=== PATIENT | female | born 1955 | race Caucasian/White ===

== ENCOUNTER → 2020-07-15 | Outpatient (CLI) | payer OTHER ==
--- NOTE | 2020-07-20 09:41 | MM ---
Reason for exam: screening (asymptomatic). Last mammogram was performed 1 year and 4 months ago. History: Patient is postmenopausal, history of other cancer, and is nulliparous. Family history of breast cancer in maternal grandmother, breast cancer in maternal aunt, and breast cancer in 2 maternal cousins. Benign excisional biopsy of the left breast, 1997. Physical Findings: A clinical breast exam by your physician is recommended on an annual basis and results should be correlated with mammographic findings. MG 3D Screening Mammo W/Cad Bilateral CC and MLO view(s) were taken. Prior study comparison: March 31, 2019, mammogram, performed at [place]. September 26, 2017, mammogram, performed at [place]. There are scattered fibroglandular densities. There is no discrete abnormality. No significant changes when compared with prior studies. ASSESSMENT: Negative, BI-RAD 1 RECOMMENDATION: Routine screening mammogram of both breasts in 1 year.
== END | disposition home or self-care (01) ==
LOC: RADMAMWWP 08:26
PROVIDERS: ATTEND Family Medicine
DX: Z12.31 Encounter for screening mammogram for malignant neoplasm of breast (principal); Z78.0 Asymptomatic menopausal state; Z80.3 Family history of malignant neoplasm of breast
CPT/HCPCS: 77063; 77067

== ENCOUNTER → 2020-10-19 | Outpatient (CLI) | payer OTHER ==
--- NOTE | 2020-10-19 13:05 | US ---
EXAMINATION TYPE: US pelvis complete transvag DATE OF EXAM: 10/19/2020 COMPARISON: NONE CLINICAL HISTORY: R10.2 PELVIC PAIN. history of oophorectomy, patient unsure which one. TECHNIQUE: Transvaginal (TV) and Transabdominal (TA) . Date of LMP: postmenopausal, no HRT. EXAM MEASUREMENTS: Uterus: 4.4 x 1.9 x 3.2 cm Endometrial Stripe: 0.2 cm Right Ovary: 1.8 x 1.5 x 1.7 cm Left Ovary: not seen, assumed surgically absent 1. Uterus: Anteverted wnl 2. Endometrium: wnl 3. Right Ovary: wnl 4. Left Ovary: Surgically absent 5. Bilateral Adnexa: wnl 6. Posterior cul-de-sac: no free fluid IMPRESSION: 1. No acute process.
== END | disposition home or self-care (01) ==
LOC: RADUSWWP 12:35
PROVIDERS: ATTEND Obstetrics & Gynecology
DX: R10.2 Pelvic and perineal pain (principal); Z90.721 Acquired absence of ovaries, unilateral
CPT/HCPCS: 76830; 76856

== ENCOUNTER → 2021-05-19 | Outpatient (CLI) | payer OTHER ==
--- NOTE | 2021-05-20 06:51 | MR ---
EXAMINATION TYPE: MR knee RT wo con DATE OF EXAM: 05/19/2021 COMPARISON: Outside right knee x-ray May 11, 2019 HISTORY: Right knee pain TECHNIQUE: Multiplanar, multisequence imaging of the right knee is performed without IV contrast. FINDINGS: MEDIAL MENISCUS: Oblique and globular signal posterior horn extends to inferior articular surface tow ards the central body where there is fraying of the margins. LATERAL MENISCUS: Oblique increased signal anterior horn extends to superior articular surface sagitt al image 26. There is vertical increased signal posterior horn sagittal image 28 extending to articul ar surface. CRUCIATE LIGAMENTS: The anterior and posterior cruciate ligaments are intact and unremarkable. COLLATERAL LIGAMENTS: The medial collateral ligament and lateral collateral ligament complex are inta ct and unremarkable. EXTENSOR MECHANISM: Visualized quadriceps and patellar tendons are intact. EFFUSION: There is Small to moderate size suprapatellar joint effusion. POPLITEAL CYST: No popliteal/berrios cyst. TRICOMPARTMENT SPACES: Mild to moderate narrowing and spurring medial tibial femoral compartment. Mil d narrowing and spurring lateral tibiofemoral and patellofemoral compartments. CARTILAGE: Tricompartment articular cartilage fairly well preserved BONE MARROW SIGNAL: No focal abnormal marrow signal is appreciated. OTHER: No additional significant abnormality is appreciated. IMPRESSION: 1. Full-thickness tear posterior horn of the medial meniscus extending toward central body. 2. Full-thickness tearing involving anterior and posterior horns of the lateral meniscus. 3. Small to moderate-sized suprapatellar joint effusion. 4. Mild to moderate tricompartment degenerative changes greatest medial tibial femoral compartment as detailed above.
== END | disposition home or self-care (01) ==
LOC: RADMRIMAIN 13:01
PROVIDERS: ATTEND Orthopaedic Surgery
DX: M25.461 Effusion, right knee (principal); M23.321 Other meniscus derangements, posterior horn of medial meniscus, right knee; M23.341 Other meniscus derangements, anterior horn of lateral meniscus, right knee; M23.351 Other meniscus derangements, posterior horn of lateral meniscus, right knee; M17.11 Unilateral primary osteoarthritis, right knee

== ENCOUNTER → 2021-06-15 | Outpatient (CLI) | payer OTHER ==
[2021-06-15 18:56] LABS: Basophils # (A) 0.07 X 10*3/uL (0.00-0.10); Basophils % (A) 0.9 %; Eosinophils # (A) 0.12 X 10*3/uL (0.04-0.35); Eosinophils % (A) 1.6 %; HCT 44.3 % (37.2-46.3); HGB 13.7 g/dL (12.0-15.0); Immature Grans, Automated 0.3 %; Lymphocytes # (A) 2.04 X 10*3/uL (0.90-5.00); Lymphocytes % (A) 27.6 %; MCH 28.7 pg (27.0-32.0); MCHC 30.9 g/dL (32.0-37.0); MCV 92.9 fL (80.0-97.0); Monocytes # (A) 0.54 X 10*3/uL (0.20-1.00); Monocytes % (A) 7.3 %; NRBC Per 100 WBC 0 /100 WBCS (0.0-0.0); Neutrophils # (A) 4.59 X 10*3/uL (1.80-7.70); Neutrophils % (A) 62.3 %; Platelet Count 339 X 10*3/uL (140-440); RBC 4.77 X 10*6/uL (4.10-5.20); RDW 16.2 % (11.5-14.5); WBC 7.38 X 10*3/uL (4.50-10.00)
[2021-06-15 18:58] LABS: Anion Gap 14.4 mmol/L (10.00-18.00); Potassium 4.2 mmol/L (3.5-5.5)
== END | disposition home or self-care (01) ==
LOC: LABPAT 10:44
PROVIDERS: ATTEND Orthopaedic Surgery
DX: Z01.812 Encounter for preprocedural laboratory examination (principal); M23.91 Unspecified internal derangement of right knee
CPT/HCPCS: 80051; 85025

== ENCOUNTER 2021-06-30 09:03 | Day surgery (SDC) | payer OTHER ==
--- NOTE | 2021-06-29 14:54 | HP ---
HISTORY AND PHYSICAL DATE OF SURGERY: 06/30/2021 Tavia Slaughter is a 66-year-old patient seen with progressive right knee pain. We discussed options. She elected to proceed with right knee arthroscopy. Consent was obtained. PAST MEDICAL HISTORY: Scleroderma, GERD. PAST SURGICAL HISTORY: Breast biopsy, finger amputation, foot mass excision. DAILY MEDICATIONS: Ibuprofen, Lexapro, Nexium. ALLERGIES: NONE. SOCIAL HISTORY: She smokes half pack of cigarettes daily. PHYSICAL EVALUATION OF THE RIGHT KNEE: Her range of motion is negative 2 to 115. Mild effusion. Tenderness, lateral joint line. Tenderness, medial joint line. Positive lateral Tobias's. Ligaments stable. Hip rotation without pain. Distal neurovascular exam intact. Radiographs of the right knee revealed moderate tricompartmental osteoarthritis. MRI right knee revealed medial meniscal tear, lateral meniscal tear and effusion. IMPRESSION: 1. Internal derangement of right knee with medial and lateral meniscal tears. 2. Right knee osteoarthritis. 3. Gastroesophageal reflux disease. PLAN: Right knee arthroscopy with partial medial/lateral meniscectomy and debridement. MMODL / IJN: [id number] /
[~2021-06-30 09:03] MED LIST: DEXAMETHASONE SOD PHOSPHATE 4 MG/ML 1 ML VIAL IV ONE; HYDROmorphone 0.5 MG/0.5 ML SYRINGE IVP PRN; LACTATED RINGERS 1,000 ML IV SCH; LIDOCAINE 1% (10MG/ML) FOR IV START INTRADERMA PRN; MIDAZOLAM 2 MG/2 ML VIAL IV PRN; ONDANSETRON 4 MG/2 ML VIAL IVP ONE
[2021-06-30] MEDS ORDERED: fentaNYL (PF) 50 MCG/ML 2 ML AMP ONE (12:11)
[2021-06-30] MEDS ORDERED: MIDAZOLAM 2 MG/2 ML VIAL ONE (12:11)
[2021-06-30] MEDS ORDERED: PROPOFOL 10 MG/ML 20 ML VIAL IV ONE (12:11)
[2021-06-30] MEDS ORDERED: LIDOCAINE 2% INJ 20 MG/ML (2 ML VIAL) ONE (12:11)
[2021-06-30] MEDS ORDERED: SUCCINYLCHOLINE CHLORIDE 100 MG/5 ML SYR IV ONE (12:11)
[2021-06-30] MEDS ORDERED: BUPIVACAINE (PF) 0.25% 30 ML VIAL SQ ONE ×2 (12:14→12:48)
--- NOTE | 2021-06-30 13:03 | P.OP ---
Date of Procedure: 06/30/21 Preoperative Diagnosis: Internal derangement right knee Postoperative Diagnosis: 1. Tear medial meniscus right knee 2. Tear lateral meniscus right knee 3. Grade 4 chondromalacia medial femoral condyle right knee 4. Reactive synovitis medial, lateral and suprapatellar compartments right knee Procedure(s) Performed: 1. Arthroscopic partial medial and lateral meniscectomy right knee 2. Arthroscopic microfracture medial femoral condyle right knee 3. Arthroscopic partial synovectomy medial, lateral and suprapatellar compartments right knee Anesthesia: BROWNA, local Surgeon: Ludin Thakkar Estimated Blood Loss (ml): 7 Pathology: none sent Condition: stable Disposition: PACU Indications for Procedure: 66-year-old patient seen with progressive right knee pain. After treatment options were discussed, she elected to proceed with arthroscopy. Operative Findings: See description of procedure Description of Procedure: Patient was taken to the operative suite. Patient underwent a general anesthetic by the department of anesthesia. Patient was given preoperative antibiotics. The right lower extremity was placed in a well-padded arthroscopic leg silva. The right leg was prepped and draped in the normal sterile orthopedic fashion. A lateral parapatellar and suprapatellar incision was made. Trochars were inserted. Arthroscopy was initiated. Suprapatellar pouch revealed diffuse thick reactive synovitis. The patellofemoral joint appeared articulate congruently. There was grade 1/2 chondromalacia of the patella with no Gibson and osteochondral tears present. The scope was guided into the medial gutter. No loose bodies or plica were identified. The scope was then guided into the medial compartment. A medial parapatellar incision was made. Trocar inserted followed by probe. There was a radial tear involving the posterior horn of the medial meniscus. There was an area of grade 4 chondromalacia with exposed bone involving the medial femoral condyle. There was thick reactive synovitis anteriorly. I performed a partial medial meniscectomy getting down to stable meniscal tissue. I performed a partial synovectomy decompressing the thick reactive synovitis. I performed a microfracture to the medial femoral condyle penetrating the bone with resultant bleeding at the microfracture site. The residual meniscus was probed and found to be stable. There was good decompression of synovitis. The residual osteochondral surface of the medial femoral condyle appeared stable. Scope and probe were then guided into the intercondylar notch. Cruciates were identified, probed and found to be stable. The scope and probe were then guided into lateral compartment. There was a discoid lateral meniscus with a central tear. There were grade 3 chondromalacia changes of the lateral femoral condyle without osteochondral tears. There was some thick reactive synovitis anteriorly. I performed a partial lateral meniscectomy restoring the normal architecture to the lateral meniscus. I introduced a motorized shaver and debrided out this piecemeal fragments. I now performed a partial synovectomy decompressing the thick reactive some-itis anteriorly. The residual meniscus was stable. There was good decompression of synovitis. The scope was in guided back into the suprapatellar compartment. I introduced a motorized shaver into the suprapatellar compartment. I debrided out some piecemeal fragments of meniscus I encountered. I performed a partial synovectomy. The shaver was now removed. There was good decompression of synovitis. I now took one more look around the entire knee, no residual debris. Instruments were now removed from the joint. The joint was infiltrated with .25% Marcaine. Steri-Strips were applied to the portal sites. Sterile dressings were applied. The patient was placed into a IGNACIO hose. No tourniquet was utilized. The patient was awakened, transferred to a bed and taken to recovery stable satisfactory condition.
[2021-06-30 13:10] VITALS: TEMP 97.4
[2021-06-30 13:26] VITALS: RESP 16
[2021-06-30 14:02] VITALS: BP 148/69; PULSE 70
== END 2021-06-30 14:12 | disposition home or self-care (01) ==
LOC: OR 09:03
PROVIDERS: ATTEND Orthopaedic Surgery
DX: S83.241A Other tear of medial meniscus, current injury, right knee, initial encounter (principal); S83.281A Other tear of lateral meniscus, current injury, right knee, initial encounter; M94.261 Chondromalacia, right knee; F17.210 Nicotine dependence, cigarettes, uncomplicated; K21.9 Gastro-esophageal reflux disease without esophagitis; M65.861 Other synovitis and tenosynovitis, right lower leg; F32.A Depression, unspecified; Z79.899 Other long term (current) drug therapy; K22.70 Barrett's esophagus without dysplasia
CPT/HCPCS: 29880; 29879; J2250; J1100; J0690; J2405; J3010; J0330; J2704; J2001

== ENCOUNTER → 2021-07-19 | Outpatient (CLI) | payer OTHER ==
--- NOTE | 2021-07-21 14:52 | MM ---
Reason for Exam: Screening (asymptomatic). Last screening mammogram was performed 12 month(s) ago. Patient History: Menarche at age 16. Patient has no children. Hysterectomy at age 53. Postmenopausal. Other cancer. 1997, Benign Excisional Biopsy on the left side. Maternal grandmother had breast cancer. Maternal cousin had breast cancer. Maternal cousin had breast cancer. Maternal aunt had breast cancer. Risk Values: Juanita 5 year model risk: 1.9%. NCI Lifetime model risk: 7.7%. Film Views: Bilateral CC views were taken. Bilateral MLO views were taken. Prior Study Comparison: 09/26/2017 Screening Mammogram, [place]. 03/31/2019 Screening Mammogram, [place]. 07/15/2020 Bilateral Screening Mammogram, [facility]. Tissue Density: The breast tissue is almost entirely fat. Findings: Analyzed By CAD. There is no suspicious group of microcalcifications or new suspicious mass in either breast. Overall Assessment: Benign, BI-RAD 2 Management: Screening Mammogram of both breasts in 1 year. A clinical breast exam by your physician is recommended on an annual basis and results should be correlated with mammographic findings. Electronically signed and approved by: Matt Peters M.D. Radiologis
== END | disposition home or self-care (01) ==
LOC: RADMAMWWP 10:49
PROVIDERS: ATTEND Family Medicine
DX: Z12.31 Encounter for screening mammogram for malignant neoplasm of breast (principal); Z80.3 Family history of malignant neoplasm of breast; Z78.0 Asymptomatic menopausal state
CPT/HCPCS: 77067

== ENCOUNTER → 2022-07-20 | Outpatient (CLI) | payer MEDICARE ==
--- NOTE | 2022-07-21 09:04 | MM ---
Reason for Exam: Screening (asymptomatic). Last screening mammogram was performed 12 month(s) ago. Patient History: Menarche at age 16. Patient has no children. Hysterectomy at age 53. Postmenopausal. Other cancer. 1997, Benign Excisional Biopsy on the left side. Maternal grandmother had breast cancer. Maternal cousin had breast cancer. Maternal cousin had breast cancer. Maternal aunt had breast cancer. Risk Values: Juanita 5 year model risk: 2.0%. NCI Lifetime model risk: 7.5%. Prior Study Comparison: 03/31/2019 Screening Mammogram, [place]. 07/15/2020 Bilateral Screening Mammogram, [facility]. 07/19/2021 Bilateral MG screening mammo w CAD, [facility]. Tissue Density: There are scattered fibroglandular densities. Findings: Analyzed By CAD. There are a few scattered benign-appearing round calcifications throughout the bilateral breasts redemonstrated. There is no suspicious group of microcalcifications or new suspicious mass in either breast. Overall Assessment: Benign, BI-RAD 2 Management: Screening Mammogram of both breasts in 1 year. . Patient should continue monthly self-breast exams. A clinical breast exam by your physician is recommended on an annual basis. This exam should not preclude additional follow-up of suspicious palpable abnormalities. Note on Juanita scores and lifetime risk: 1. A Juanita score greater than 3% is considered moderate risk. If this is the case, consider specialist referral to assess eligibility for a risk reducing agent. 2. If overall lifetime risk for the development of breast cancer is 20% or higher, the patient may qualify for future screening with alternating mammogram and breast MRI. Electronically signed and approved by: Spencer Diallo M.D.
== END | disposition home or self-care (01) ==
LOC: RADMAMWWP 09:02
PROVIDERS: ATTEND Family Medicine
DX: Z12.31 Encounter for screening mammogram for malignant neoplasm of breast (principal); Z78.0 Asymptomatic menopausal state; Z80.3 Family history of malignant neoplasm of breast
CPT/HCPCS: 77063; 77067

== ENCOUNTER 2022-11-08 11:01 | Emergency (ER) | payer MEDICARE, OTHER ==
--- NOTE | 2022-11-08 11:36 | ED ---
General Adult HPI - General Stated complaint: Fall/Dizzy Time Seen by Provider: 11/08/22 11:35 Source: patient, RN notes reviewed Mode of arrival: ambulatory Limitations: no limitations - History of Present Illness Initial comments: 67-year-old female presents emergency Department chief complaint of a head injury. Patient states she took back in a chair striking her head on Sunday night. She states ever since she struck her head she's felt dizzy. She initially had a headache that has improved. There is no focal weakness denies any blood thinners she does complain of mild neck soreness. Patient denies any chest pain or shortness of breath. - Related Data Home Medications Medication Instructions Recorded Confirmed Escitalopram [Lexapro] 10 mg PO DAILY 06/28/21 06/30/21 Esomeprazole Magnesium [NexIUM] 20 mg PO DAILY 06/28/21 06/30/21 NIFEdipine [Procardia] 10 mg PO DAILY 06/28/21 06/30/21 Sildenafil [Revatio] 2 tab PO DAILY 06/28/21 06/30/21 Previous Rx's Medication Instructions Recorded HYDROcodone/APAP 5-325MG [[place] 1 tab PO Q6HR PRN 7 Days #28 tab 06/30/21 5-325] Meclizine [Antivert] 25 mg PO TID PRN #15 tab 11/08/22 Allergies Allergy/AdvReac Type Severity Reaction Status Date / Time COVID-19 (SARS-CoV-2) Allergy Anaphylaxis Verified 11/08/22 11:38 vaccine, catrachito Sulfa (Sulfonamide AdvReac Nausea & Verified 11/08/22 11:38 Antibiotics) Vomiting Review of Systems ROS Statement: Those systems with pertinent positive or pertinent negative responses have been documented in the HPI. ROS Other: All systems not noted in ROS Statement are negative. General Exam - General Exam Comments Initial Comments: Visual Physical Exam Vital signs reviewed General: Well-appearing, nontoxic, no acute distress. Head: Normocephalic, atraumatic Eyes: PERRLA, EOMI ENT: Airway patent Chest: Nonlabored breathing Skin: No visual rash, normal skin tone Neuro: Alert and oriented 3 Musculoskeletal: No gross abnormalities Limitations: no limitations General appearance: alert, in no apparent distress Head exam: Present: atraumatic, normocephalic, normal inspection Eye exam: Present: normal appearance, PERRL, EOMI. Absent: scleral icterus, conjunctival injection, periorbital swelling ENT exam: Present: normal exam, mucous membranes moist Neck exam: Present: normal inspection, full ROM. Absent: tenderness, meningismus, lymphadenopathy Respiratory exam: Present: normal lung sounds bilaterally. Absent: respiratory distress, wheezes, rales, rhonchi, stridor Cardiovascular Exam: Present: regular rate, normal rhythm, normal heart sounds. Absent: systolic murmur, diastolic murmur, rubs, gallop, clicks Neurological exam: Present: alert, oriented X3, CN II-XII intact, reflexes normal. Absent: motor sensory deficit Skin exam: Present: warm, dry, intact, normal color. Absent: rash Course Vital Signs 11/08/22 11/08/22 11:33 14:30 Temperature 98.2 F 97.8 F Pulse Rate 63 70 Respiratory 18 18 Rate Blood Pressure 131/81 159/76 O2 Sat by Pulse 98 Oximetry Medical Decision Making - Medical Decision Making I performed a quick note portion of this Chart signed Jesus Ellison PA-C Was pt. sent in by a medical professional or institution (LIDIA Joy, TECHNICAL SERVICES COORDINATOR, urgent care, hospital, or [facility]...) When possible be specific @ -No Did you speak to anyone other than the patient for history (EMS, parent, family, police, friend...)? What history was obtained from this source @ -No Did you review nursing and triage notes (agree or disagree)? Why? @ -I reviewed and agree with nursing and triage notes Were old charts reviewed (outside hosp., previous admission, EMS record, old EKG, old radiological studies, urgent care reports/EKG's, [facility] records)? Report findings @ -No old charts were reviewed Differential Diagnosis (chest pain, altered mental status, abdominal pain women, abdominal pain men, vaginal bleeding, weakness, fever, dyspnea, syncope, headache, dizziness, GI bleed, back pain, seizure, CVA, palpatations, mental health, musculoskeletal)? @ -Intracranial hemorrhage, concussion, head injury EKG interpreted by me (3pts min.). @ -None X-rays interpreted by me (1pt min.). @ -None done CT interpreted by me (1pt min.). @ -CT brain, C-spine shows no acute intracranial processfracture no malalignment U/S interpreted by me (1pt. min.). @ -None done What testing was considered but not performed or refused? (CT, X-rays, U/S, labs)? Why? @ -None What meds were considered but not given or refused? Why? @ -None Did you discuss the management of the patient with other professionals (professionals i.e. Dr., PA, TECHNICAL SERVICES COORDINATOR, lab, RT, psych nurse, rn social work, criminal lawyer, teacher, payroll officer, case management associate)? Give summary @ -No Was smoking cessation discussed for >3mins.? @ -No Was critical care preformed (if so, how long)? @ -No Were there social determinants of health that impacted care today? How? (Homelessness, low income, unemployed, alcoholism, drug addiction, transportation, low edu. Level, literacy, decrease access to med. care, [facility], rehab)? @ -No Was there de-escalation of care discussed even if they declined (Discuss DNR or withdrawal of care, Hospice)? DNR status @ -No What co-morbidities impacted this encounter? (DM, HTN, Smoking, COPD, CAD, Cancer, CVA, ARF, Chemo, Hep., AIDS, mental health diagnosis, sleep apnea, morbid obesity)? @ -None Was patient admitted / discharged? Hospital course, mention meds given and route, prescriptions, significant lab abnormalities, going to OR and other pertinent info. @ -[Discharge patient imaging is negative patient has dizziness related to her head injury she had no dizziness prior to her head injury. Patient be discharged with Antivert patient agrees to plan patient offers labwork patient declined. Undiagnosed new problem with uncertain prognosis? @ -No Drug Therapy requiring intensive monitoring for toxicity (Heparin, Nitro, Insulin, Cardizem)? @ -No Were any procedures done? @ -No Diagnosis/symptom? @ -) Head injury Acute, or Chronic, or Acute on Chronic? @ -Acute Uncomplicated (without systemic symptoms) or Complicated (systemic symptoms)? @ -Uncomplicated Side effects of treatment? @ -No Exacerbation, Progression, or Severe Exacerbation? @ -No Poses a threat to life or bodily function? How? (Chest pain, USA, MA, pneumonia, PE, COPD, DKA, ARF, appy, cholecystitis, CVA, Diverticulitis, Homicidal, Suicid al, threat to staff... and all critical care pts) @ -No Disposition Clinical Impression: Head injury, Dizziness Disposition: HOME SELF-CARE Condition: Stable Instructions (If sedation given, give patient instructions): Dizziness (ED) Additional Instructions: Please return to the Emergency Department if symptoms worsen or any other concerns. Prescriptions: Meclizine [Antivert] 25 mg PO TID PRN #15 tab PRN Reason: Vertigo Is patient prescribed a controlled substance at d/c from ED?: No Referrals: Shelbi Steele RN [REGISTERED NURSE] - 1-2 days Time of Disposition: 14:02
[2022-11-08 11:38] VITALS: RESP 18
--- NOTE | 2022-11-08 12:16 | CT ---
EXAMINATION TYPE: CT brain catrina koo DATE OF EXAM: 11/08/2022 COMPARISON: HISTORY: pain and dizziness after fall x few days ago CT DLP: 1298.3 mGycm Automated exposure control for dose reduction was used. TECHNIQUE: CT scan of the head and cervical spine are performed without contrast. FINDINGS: There is no acute intracranial hemorrhage, mass effect, or midline shift identified. The ventricles and sulci are within normal limits in size. The globes are intact and the visualized sin uses are clear. There is minimal anterolisthesis of C2 on C3. There is severe atlantoaxial degenerative change of the small to moderate-sized posterior pannus. There is severe degenerative disc disease and discogenic marrow changes, posterior spondylosis and an terior spurring C4-5, C5-6 and C6-C7. There is multilevel foraminal encroachment. Canal stenosis is s uspected. Cannot exclude disc herniations.Hypodensities within the thyroid gland likely represents hutton bcentimeter thyroid. IMPRESSION: 1. There is no acute fracture or dislocation evident in the cervical spine. Multilevel severe degener ative disc disease with foraminal encroachment and canal stenosis recommend follow-up MRI. 2. No acute intracranial hemorrhage, mass effect, or midline shift is seen.
[2022-11-08 14:34] VITALS: BP 159/76; PULSE 70; TEMP 97.8
== END 2022-11-08 14:34 | disposition home or self-care (01) ==
LOC: EC 11:01
DX: S09.90XA Unspecified injury of head, initial encounter (principal); R42 Dizziness and giddiness; Z88.2 Allergy status to sulfonamides; Z88.7 Allergy status to serum and vaccine; W01.198A Fall on same level from slipping, tripping and stumbling with subsequent striking against other object, initial encounter
CPT/HCPCS: 70450; 72125; 99284

== ENCOUNTER → 2023-06-12 | Outpatient (CLI) | payer MEDICARE ==
[2023-06-12 16:13] LABS: ALT 36 U/L (8-44); AST 36 U/L (13-35); Chol/HDL Ratio 4.17 Ratio; LDL Cholesterol,Calculated 148.6 mg/dL (0.0-131.0); VLDL Calculation 19.38 mg/dL (5.00-40.00)
== END | disposition home or self-care (01) ==
LOC: LABWHC1 11:12
PROVIDERS: ATTEND Internal Medicine Interventional Cardiology
DX: E78.00 Pure hypercholesterolemia, unspecified (principal)
CPT/HCPCS: 36415; 80061; 84450; 84460

== ENCOUNTER → 2023-06-12 | Outpatient (CLI) | payer MEDICARE, OTHER ==
--- NOTE | 2023-06-12 17:05 | CA ---
Transthoracic Echo Report Name: Tavia Slaughter Age: 68 Gender: F : 1955 Exam Date: 06/12/2023 08:30 Exam Location: [facility] Ht (in): 63 Wt (lb): 170 Ordering Physician: Renetta Reardon MD Attending/Referring Phys: Renetta Reardon MD Concrete Finisher Grace Valenzuela, [facility] Procedure CPT: Indications: R06.02 SHORTNESS OF BREATH Cardiac Hx: Technical Quality: Fair Contrast 1: Total Dose (mL): Contrast 2: Total Dose (mL): MEASUREMENTS (Male / Female) Normal Values 2D ECHO LV Diastolic Diameter PLAX 4.2 cm 4.2 - 5.9 / 3.9 - 5.3 cm LV Systolic Diameter PLAX 2.7 cm IVS Diastolic Thickness 0.9 cm 0.6 - 1.0 / 0.6 - 0.9 cm LVPW Diastolic Thickness 0.9 cm 0.6 - 1.0 / 0.6 - 0.9 cm LV Relative Wall Thickness 0.4 RV Internal Dim ED PLAX 2.5 cm LA Systolic Diameter LX 3.1 cm 3.0 - 4.0 / 2.7 - 3.8 cm LV Diastolic Volume MOD BP 42.2 cm??? 67 - 155 / 56 - 104 cm??? LV Systolic Volume MOD BP 20.3 cm??? 22 - 58 / 19 - 49 cm??? LV Ejection Fraction MOD BP 52.0 % >= 55 % LV Cardiac Index MOD BP 643.2 cm???/min???m??? LV Diastolic Volume MOD 4C 56.7 cm??? LV Systolic Volume MOD 4C 25.1 cm??? LV Ejection Fraction MOD 4C 55.8 % LV Cardiac Index MOD 4C 925.7 cm???/min???m??? LV Diastolic Length 4C 6.2 cm LV Systolic Length 4C 5.0 cm LV Diastolic Volume MOD 2C 27.6 cm??? LV Systolic Volume MOD 2C 13.6 cm??? LV Ejection Fraction MOD 2C 50.7 % LV Cardiac Index MOD 2C 410.1 cm???/min???m??? LV Diastolic Length 2C 5.4 cm LV Systolic Length 2C 4.4 cm M-MODE Aortic Root Diameter MM 2.4 cm LA Systolic Diameter MM 3.1 cm LA Ao Ratio MM 1.3 DOPPLER AV Peak Velocity 176.4 cm/s AV Peak Gradient 12.4 mmHg Mitral E Point Velocity 79.4 cm/s Mitral A Point Velocity 70.7 cm/s Mitral E to A Ratio 1.1 MV Deceleration Time 321.4 ms MV E' Velocity 8.7 cm/s Mitral E to MV E' Ratio 9.1 TR Peak Velocity 243.8 cm/s TR Peak Gradient 23.8 mmHg Right Ventricular Systolic Press 29.0 mmHg FINDINGS Left Ventricle Left ventricular ejection fraction is estimated at 55-60%.Normal Left ventricular size, wall thickness, systolic function with no obvious regional wall motion abnormalities. Normal Left ventricular diastolic filling pattern. Right Ventricle Normal right ventricular size and function. Right Atrium Normal right atrial size. Left Atrium Normal left atrial size. Mitral Valve Structurally normal mitral valve. Mild mitral regurgitation. Aortic Valve No aortic valve stenosis or regurgitation. Tricuspid Valve Structurally normal tricuspid valve. Mild tricuspid regurgitation. Pulmonic Valve Structurally normal pulmonic valve. Trace pulmonic regurgitation. Pericardium No pericardial effusion. Aorta Normal size aortic root and proximal ascending aorta. CONCLUSIONS Normal LV function Previewed by: Dr. Tito Ness MD (Electronically Signed) Final Date: 12 June 2023 17:05
== END ==
LOC: CPPFTMAIN 09:18
PROVIDERS: ATTEND Internal Medicine
DX: M34.9 Systemic sclerosis, unspecified (principal); Z88.2 Allergy status to sulfonamides; Z88.7 Allergy status to serum and vaccine
CPT/HCPCS: 93306; 94060; 94726; 94729

== ENCOUNTER → 2023-08-14 | Outpatient (CLI) | payer MEDICARE ==
--- NOTE | 2023-08-15 13:58 | MM ---
Reason for Exam: Screening (asymptomatic). Last mammogram was performed 1 year(s) and 1 month(s) ago. Patient History: Menarche at age 16. Patient has no children. Hysterectomy at age 53. Postmenopausal. Other cancer. 1997, Benign Excisional Biopsy on the left side. Maternal grandmother had breast cancer. Maternal cousin had breast cancer. Maternal cousin had breast cancer. Maternal aunt had breast cancer. Risk Values: Juanita 5 year model risk: 2.0%. NCI Lifetime model risk: 7.2%. Prior Study Comparison: 07/15/2020 Bilateral Screening Mammogram, [facility]. 07/19/2021 Bilateral MG screening mammo w CAD, [facility]. 07/20/2022 Bilateral MG 3D screening mammo w/cad, [facility]. Tissue Density: The breasts are almost entirely fatty. Findings: Analyzed By CAD. Right breast: There is no suspicious group of microcalcifications or new suspicious mass. Benign-appearing calcifications right breast. Left breast: There is no suspicious group of microcalcifications or new suspicious mass. Benign-appearing calcifications left breast. Overall Assessment: Benign, BI-RAD 2 Management: Screening Mammogram of both breasts in [address] [facility] will attempt to contact patient to return for supplemental views and ultrasound if indicated. Patient should continue monthly self-breast exams. A clinical breast exam by your physician is recommended on an annual basis. This exam should not preclude additional follow-up of suspicious palpable abnormalities. Note on Juanita scores and lifetime risk: 1. A Juanita score greater than 3% is considered moderate risk. If this is the case, consider specialist referral to assess eligibility for a risk reducing agent. 2. If overall lifetime risk for the development of breast cancer is 20% or higher, the patient may qualify for future screening with alternating mammogram and breast MRI. Electronically signed and approved by: Orville Mahmood DO
--- NOTE | 2023-08-15 17:38 | BD ---
EXAMINATION TYPE: Axial Bone Density DATE OF EXAM: 08/14/2023 CLINICAL HISTORY: 68 years old Female. ICD-10 CODE: Z78.0 ASYMPTOMATIC MENOPAUSAL STA Height: 62.5 in Weight: 160 lbs FRAX RISK QUESTIONS: Current Tobacco Use: yes EXAM MEASUREMENTS: Bone mineral densitometry was performed using the [employer]. Bone mineral density as measured about the Lumbar spine is: ----- L1-L4(G/cm2): 1.189 T Score Values are as follows: ----- L1: -0.9 ----- L2: -0.3 ----- L3: 1.3 ----- L4: 0.3 ----- L1-L4: 0.1 Z Score Values are as follows: ----- L1: 0.4 ----- L2: 1.0 ----- L3: 2.6 ----- L4: 1.6 ----- L1-L4: 1.4 Bone mineral density baseline Bone mineral density about the R hip (g/cm2): 0.880 Bone mineral density about the L hip (g/cm2): 0.878 T Score values are as follows: -----R Neck: -2.2 -----L Neck: -1.9 -----R Total: -1.0 -----L Total: -1.0 Z Score values are as follows: -----R Neck: -0.8 -----L Neck: -0.6 -----R Total: 0.1 -----L Total: 0.1 Bone mineral density baseline FRAX%s: The graph provided illustrates a 12.6% chance for a major osteoporotic fx and a 3.6% chance f or the hips probability for fx in 10 years time. IMPRESSION: Osteopenia (T Score between -2.5 and -1). There is slightly increased risk of fracture and the patient may be considered for treatment. Re-Screen 2-5 years. NOTE: T-SCORE=SD OF THE YOUNG ADULT MEAN.
== END | disposition home or self-care (01) ==
LOC: RADMAMWWP 15:09
PROVIDERS: ATTEND Family Medicine
DX: Z12.31 Encounter for screening mammogram for malignant neoplasm of breast (principal); M85.89 Other specified disorders of bone density and structure, multiple sites; Z78.0 Asymptomatic menopausal state; Z80.3 Family history of malignant neoplasm of breast
CPT/HCPCS: 77063; 77067; 77080

== ENCOUNTER → 2023-09-14 | Outpatient (CLI) | payer MEDICARE ==
[2023-09-14 10:20] LABS: African American GFR (CKD) >90 (>60 ml/min/1.73 sqM); Blood Urea Nitrogen 11 mg/dL (7-17); Non-African American GFR(CKD) >90 (>60 ml/min/1.73 sqM)
--- NOTE | 2023-09-14 11:32 | CT ---
EXAMINATION TYPE: CT angio abd aorta w/Runoff CT DLP: 2730 mGycm, Automated exposure control for dose reduction was used. DATE OF EXAM: 09/14/2023 11:18 AM COMPARISON: None. CLINICAL INDICATION:Female, 68 years old with history of I73.9 PERIPHERAL VASCULAR DISEASE, UNSPECIFI ED; Toe turning different color x1 year. TECHNIQUE: Multiple thin slice sub-millimeter images were obtained through the abdomen, pelvis, and l ower extremities before and after administration of contrast. Patient was given Isovue 370, 125 cc i ntravenously. 3-D reconstructed images and maximum intensity projection images were obtained of the abdomen, pelvis, and lower extremities. FINDINGS: CTA Abdomen and pelvis: The abdominal aorta does not demonstrate aneurysmal dilatation. Moderate ath erosclerotic plaquing is identified within the abdominal aorta. The origins of the superior mesenter ic artery, renal arteries, inferior mesenteric artery, and celiac axis are patent. Moderate stenosis origin of the celiac axis secondary to calcified plaque. Minimal stenosis at the origin of the SMA se condary to calcified plaque. There is single right renal artery with 2 left renal arteries. Mild sten osis at the origin of the renal artery secondary to calcified plaque. Atherosclerotic plaquing with s ome mural thrombus formation is identified in the common iliac arteries. CTA Lower extremities: Right: The common femoral and superficial femoral arteries are patent. The popliteal artery is patent . Anterior and posterior tibial arteries as well as the peroneal artery are patent. Anterior and post erior tibial arteries cross the ankle. No regions of significant stenosis. Left: The common femoral and superficial femoral arteries are patent. Moderate atherosclerotic plaque identified within the distal aspect of the common femoral artery with less than 50% stenosis. The po pliteal artery is patent. Anterior and posterior tibial arteries as well as the peroneal artery are p atent. Anterior and posterior tibial arteries cross the ankle. No other regions significant stenosis. VISCERA: The liver, spleen, adrenal glands, kidneys, pancreas, and gallbladder are not optimally enha nced due the arterial phase utilized. LIVER: Unremarkable GALLBLADDER AND BILE DUCTS: Unremarkable. PANCREAS: Unremarkable. SPLEEN: Unremarkable. ADRENAL GLANDS: Unremarkable. KIDNEYS AND URETERS: No evidence of hydronephrosis or renal calculus. The kidneys enhance symmetrical ly. PELVIS BLADDER: Unremarkable REPRODUCTIVE: Unremarkable. ABDOMEN & PELVIS STOMACH AND BOWEL: Small hiatal hernia. No focal bowel wall thickening. The appendix is within normal limits. Few scattered colonic diverticula without surrounding inflammatory changes. No evidence of b owel obstruction. PERITONEUM: No evidence of pneumoperitoneum or free fluid. MUSCULOSKELETAL: No acute osseous abnormalities. Mild multilevel degenerative disease. LYMPH NODES: No gross evidence for lymphadenopathy. SOFT TISSUE/ABDOMINAL WALL: Small fat filled umbilical hernia. LOWER CHEST: Mosaic attenuation in the lung bases likely related to air trapping. IMPRESSION 1. No evidence of vascular occlusion. 2. Moderate atherosclerotic disease involving abdominal aorta with minimal to mild atherosclerotic d isease involving the lower extremity vasculature as described above. 3. At least two vessels are seen crossing the ankle joint.
== END | disposition home or self-care (01) ==
LOC: RADCTMAIN 09:22
PROVIDERS: ATTEND Internal Medicine Interventional Cardiology
DX: I73.9 Peripheral vascular disease, unspecified (principal); I70.0 Atherosclerosis of aorta
CPT/HCPCS: 82565; 84520; 75635; 36415; Q9967

== ENCOUNTER → 2024-05-02 | Outpatient (CLI) | payer MEDICARE ==
[2024-05-02 15:42] LABS: ALT 15 U/L (8-44); AST 23 U/L (13-35); Chol/HDL Ratio 2.88 Ratio; LDL Cholesterol,Calculated 89.7 mg/dL (0.0-131.0); VLDL Calculation 14.08 mg/dL (5.00-40.00)
== END | disposition home or self-care (01) ==
LOC: LABWHC1 10:34
PROVIDERS: ATTEND Internal Medicine Interventional Cardiology
DX: E78.2 Mixed hyperlipidemia (principal)
CPT/HCPCS: 36415; 80061; 84450; 84460

== ENCOUNTER → 2024-09-03 | Outpatient (CLI) | payer MEDICARE ==
--- NOTE | 2024-09-03 07:47 | CTL ---
EXAMINATION TYPE: CT Low Dose Lung DATE OF EXAM ORDERED: 09/03/2024 COMPARISON: None CLINICAL INDICATION: Female, 69 years old with history of F17.210 LUNG CANCER SCREENING Z12.31 BR CA SCR; [facility], Current smoker 1 ppd x 50 years, hx lung nodules, Lung cancer screening, History of Smoking /tobacco use. TECHNIQUE: Low dose computed tomography scan was performed through the chest at 1 mm thick sections a nd reconstructed images in multiple planes at 1 mm and [address] DLP: 97.[address] CTDI: 2.70 mGy Automated exposure control for dose reduction was used. CT DIAGNOSTIC QUALITY: Satisfactory FINDINGS: Nodules: Left lower lobe 4.3 mm pulmonary nodule along the left major fissure (series 6, image 28). LUNGS: COPD: Severity: None Fibrosis: Severity: None Lymph nodes: None Other findings: Minimal dependent bilateral lower lobe subsegmental atelectasis. RIGHT PLEURAL SPACE: Effusion: None Calcification: None Thickening: None Pneumothorax: None LEFT PLEURAL SPACE: Effusion: None Calcification: None Thickening: None Pneumothorax: None HEART: Heart Size: Normal Coronary Calcification: None Pericardial Effusion: None OTHER FINDINGS: Upper abdomen: Small hiatal hernia. Bony thorax: Multilevel anterior osteophytosis of the thoracic spine. Supraclavicular region: None Other: Mild atherosclerotic calcification of the aorta and its branches. IMPRESSION: Left lower lobe 4.[address] LUNG RAD AND CT CHEST RECOMMENDATION: Lung-Rad 2 Benign Appearance or Behavior: Continue annual sc reening with LDCT in 12 months. S Modifier (other clinically significant findings): None [facility], , 09/03/2024 7:45 AM
--- NOTE | 2024-09-03 10:27 | MM ---
Reason for Exam: Screening (asymptomatic). Last mammogram was performed 1 year(s) and 1 month(s) ago. Patient History: Menarche at age 16. Patient has no children. Left ovary removed at age 53. Postmenopausal. Other cancer. 1997, Benign Excisional Biopsy on the left side. Maternal grandmother had breast cancer. Maternal cousin had breast cancer. Maternal cousin had breast cancer. Maternal aunt had breast cancer. Risk Values: Juanita 5 year model risk: 2.0%. NCI Lifetime model risk: 6.9%. Prior Study Comparison: 07/19/2021 Bilateral MG screening mammo w CAD, [facility]. 07/20/2022 Bilateral MG 3D screening mammo w/cad, [facility]. 08/14/2023 Bilateral MG 3D screening mammo w/cad, [facility]. Tissue Density: There are scattered areas of fibroglandular density. Findings: Analyzed By CAD. Some small benign-appearing round calcifications throughout the bilateral breasts are redemonstrated. There is no suspicious group of microcalcifications or new suspicious mass in either breast. Overall Assessment: Benign, BI-RAD 2 Management: Screening Mammogram of both breasts in 1 year. . Patient should continue monthly self-breast exams. A clinical breast exam by your physician is recommended on an annual basis. This exam should not preclude additional follow-up of suspicious palpable abnormalities. Note on Juanita scores and lifetime risk: 1. A Juanita score greater than 3% is considered moderate risk. If this is the case, consider specialist referral to assess eligibility for a risk reducing agent. 2. If overall lifetime risk for the development of breast cancer is 20% or higher, the patient may qualify for future screening with alternating mammogram and breast MRI. [facility], , 09/03/2024 10:24 AM. Electronically signed and approved by: Spencer Diallo M.D.
== END | disposition home or self-care (01) ==
LOC: RADCTMAIN 07:10
PROVIDERS: ATTEND Family Medicine
DX: Z12.31 Encounter for screening mammogram for malignant neoplasm of breast (principal); Z12.2 Encounter for screening for malignant neoplasm of respiratory organs; F17.210 Nicotine dependence, cigarettes, uncomplicated; R92.323 Mammographic fibroglandular density, bilateral breasts; R92.1 Mammographic calcification found on diagnostic imaging of breast; R91.1 Solitary pulmonary nodule; Z78.0 Asymptomatic menopausal state; Z80.3 Family history of malignant neoplasm of breast
CPT/HCPCS: 71271; 77063; 77067